=== PATIENT | male | born 1990 ===

== ENCOUNTER 2016-12-04 19:40 | Emergency (ER) | payer SELFPAY ==
--- NOTE | 2016-12-04 20:23 | DIAGNOSTIC IMAGING REPORT ---
PROCEDURE: XR CHEST 2 VIEW INDICATION: FEVER TECHNIQUE: PA and lateral views. The patient shielded. COMPARISON: None. FINDINGS: Lungs are clear. Heart and mediastinum are normal. Thorax is normal. IMPRESSION: 1. Negative chest.
--- NOTE | 2016-12-04 21:17 | ED NURSING NOTES ---
Clinical Report - Nurses [facility] [address] [place] [address] 12/04/2016 19:43 Patient: JANELL REEVES TRIAGE Triage time 19:53 Dec 04 2016. Acuity: LEVEL 4. Chief Complaint: FEVER, COUGH, SORE THROAT and BODY ACHES. 19:58 12/04/16. SEPSIS SCREEN: Sepsis Screen. Negative (no infection suspected/documented). DEMIAN COMA SCORE: [place] Coma Scale: 15- eyes open spontaneously (4); best verbal response- oriented x 4 (5); best motor response- obeys commands (6). --19:58 Krystle Cortes R.N. 19:52 12/04/16. BP: 149/80 (regular adult cuff) taken on the left arm. HR: 113. RR: 18. O2 saturation: 98% on room air. Temp: 98.9 F (oral). Pain level now: 910. Additional comments: chest pain "on fire". --19:58 Krystle Cortes R.N. Weight: 85.2 kg stated. Height/Length: 67 inches Per Patient. BMI: 29.4. --19:56 Krystle Cortes R.N. Medications None. --19:55 Krystle Cortes R.N. Allergies No Known Drug Allergy. --19:56 Krystle Cortes R.N. History Arrived by private vehicle. Historian: patient. Accompanied by (girlfriend). Primary physician (no PCP). ( Went to [facility] last Monday for cough, given ABO Amoxicillin for ear infections). He has had moderate chest congestion, a headache and mild diarrhea. He has had mild vomiting (today). The vomiting has occurred twice. No known contact with a sick individual. No recent travel. 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 SOCIAL HX: Heavy tobacco smoker (cigarette)- less than 1 pack per day. No alcohol use or drug use. No recent travel. No infectious disease exposure. No known contact with a sick individual. ABUSE ASSESSMENT: No report of abuse. --19:58 Krystle Cortes R.N. PROBLEMS: no known problems. ADDITIONAL SURGERIES: no known surgeries. Interventions ID band on patient. To treatment room. --19:58 Krystle Cortes R.N. PHYSICAL ASSESSMENT 20:12/04/16. Ambulatory to room. GENERAL / NEURO / PSYCH: Alert. Oriented X 4. HEENT: Pupils equal, round and reactive to light. Mucous membranes are pink. RESPIRATORY: Mild respiratory distress. Cough productive of moderate amounts of sputum. Chest wall tenderness (hurts to cough, tender when touched). CVS: Capillary refill less than 2 seconds. Pulses within normal limits. GI / : Abdomen soft and nontender and normal bowel sounds. SKIN: Skin intact. Skin is warm. Normal skin turgor. --20:01 Kryslte Cortes R.N. NURSING PROGRESS NOTES 20:12/04/16. The plan of care for this patient has been created. Head of bed elevated. Reassurance given. Two patient identifiers checked. Call light placed in reach. Side rails up x 1. Bed placed in lowest position. Brakes of bed on. Patient ready for evaluation- chart flagged and PA notified. --20:01 Krystle Cortes R.N. ( Xray finished with patient). --20:20 Krystle Cortes R.N. ( Patient given ice water). --20:20 Krystle Cortes R.N. ( Patient relaxing, girlfriend at patients bedside for support). --20:29 Krystle Cortes R.N. 20:39 12/04/2016 Duoneb (Ipratropium-Albuterol) Neb TX Nebulizer 1 unit dose given. Given by the respiratory therapist. Allergies verified and confirmed 5 rights. --20:39 Tor Pink 20:41 12/04/2016 Hydrocodone-APAP (Hydrocodone-Acetaminophen) PO 5/325 mg Tablets 1 tab given. Allergies verified, confirmed 5 rights and sedative warning given to the patient. --20:41 Krystle Cortes R.N. 20:41 12/04/2016 Azithromycin PO Tablets 500 mg given. Allergies verified and confirmed 5 rights. --20:41 Krystle Cortes R.N. 20:41 12/04/16. ( RT in with patient). --20:41 Krystle Cortes R.N. ( RT finished with breathing treatment). --20:52 Krystle Cortes R.N. 21:07 12/04/16. --21:07 Krystle Cortes R.N. 21:12/04/16. BP: 139/74 (regular adult cuff) taken on the left arm. HR: 103. RR: 18. O2 saturation: 98% on room air. Temp: 98.4 F (oral). Pain level now: 03/02. --21:07 Krystle Cortes R.N. DISPOSITION / DISCHARGE 21:40 12/04/16. Departure time: :Dec 04 2016. Condition at departure: unchanged. No learning barriers present. Discharge instructions provided and reviewed with the patient. Reviewed medication(s) side effects, precautions, dosing and course information. Prescription(s) given to the patient. Reviewed need to stop smoking- provided smoking cessation materials. Activity restrictions reviewed (no work for 2 days). Work note given. Retanned Leather Roller verbalized understanding. Written instructions provided in German. The patient was discharged by the physician school office assistant. He was discharged home and accompanied by curve cleaner. He left the Emergency Department ambulatory and via private vehicle. Retanned Leather Roller driving. --21:40 Krystle Cortes R.N. 21:39 12/04/16. BP: 128/71 (regular adult cuff) taken on the left arm. HR: 97. RR: 18. O2 saturation: 94% on room air. Temp: 98.3 F (oral). Pain level now: 03/02. --21:40 Krystle Cortes R.N. Locked/Released at 12/04/2016 21:41 by Krystle Cortes R.N.
--- NOTE | 2016-12-04 21:17 | ED CLINICAL REPORT ---
Clinical Report - Physicians/Mid Levels [facility] [address] [place] [address] 12/04/2016 19:43 Patient: JANELL REEVES Time Seen: 19:58 Dec 04 2016. Arrived- By private vehicle. Historian- patient. HISTORY OF PRESENT ILLNESS Chief Complaint: COUGH. This started 7 days and is still present. The illness is described as mild. The patient has had a cough. No chest discomfort or pain, fever or nasal congestion or discharge. No sinus pressure or ear pain. (he reports cough over the last 2 weeks was recently seen at urgent care clinic on Monday, was diagnosed with otitis media, currently taking amoxicillin. Patient has an everyday smoker. No sick contacts, has had nausea, as well as fevers. Denies history of PE or DVT. Denies hemoptysis. Patient denies vomiting.). Additional history - The patient has had contact with a sick individual. No recent travel. Similar symptoms previously: REVIEW OF SYSTEMS No headache, eye discomfort, nausea, diarrhea or pedal edema. No calf pain or difficulty with urination. All systems otherwise negative, except as recorded above. SOCIAL HISTORY Current every day heavy tobacco smoker. No alcohol use or drug use. PHYSICAL EXAM Appearance: Alert. Does not appear to be anxious. ENT: Ears normal. Pharynx normal. No peritonsillar mass. Neck: Normal inspection. No lymphadenopathy. CVS: Normal heart rate and rhythm. Heart sounds normal. Respiratory: No respiratory distress. Wheezing present. Rhonchi present. No retractions or decreased breath sounds. Abdomen: Soft. Skin: Skin warm. Normal skin color. Neuro: Oriented X 3. LABS, X-RAYS, AND EKG Chest X-ray: (IMPRESSION: 1. Negative chest. Electronically Final signed by:Aldair Layne MD 12/04/2016 8:19:02 PM). PROGRESS AND PROCEDURES Course of Care: patient given breathing treatment in the emergency department, with cough which is productive in nature. Chest x-ray large unremarkable, patient with history of fevers, productive nature cough for the last 2 weeks. We'll treat for bronchitis, possible bacterial cause. Patient given albuterol treatment. Patient with no reproducible pain. He does smoke, risk factor, otherwise symptoms ongoing for 2 weeks, less likely PE, or cardiac etiology. 12/04/2016 21:39 BP: 128/71. HR: 97. RR: 18. O2 saturation: 94%. Temp: 98.3 F. Pain level now: 8/10. Patient is stable. Symptoms better. Patient/family counseled. Disposition: Discharged. Condition: good. CLINICAL IMPRESSION Acute bacterial bronchitis. INSTRUCTIONS Do not work for two days. Drink plenty of fluids. Warnings: Further evaluation is necessary. Prescription Medications: Ventolin HFA oral inhaler: inhale 1 puff every 6 hours for 1 week, as needed for wheezing. Dispense one (1) unit Substitution is not permissible. Robitussin A-C cough syrup take five (5) mL orally every 6 hours as needed for cough for 5 days. Dispense sixty (60) mL. Substitution is permissible. Zithromax 250 mg tablets: take 1 orally every day. Total course 4 days. No refills. Substitution is permissible. (first dose 12/05/16) Follow-up: Follow up with your doctor in three days. (Electronically signed by Soraya Ibrahim P.A.-C 12/04/2016 22:18)
--- NOTE | 2016-12-04 21:17 | ED NURSING NOTES ---
Clinical Report - Nurses [facility] [address] [place] [address] 12/04/2016 19:43 Patient: JANELL REEVES TRIAGE Triage time 19:53 Dec 04 2016. Acuity: LEVEL 4. Chief Complaint: FEVER, COUGH, SORE THROAT and BODY ACHES. 19:58 12/04/16. SEPSIS SCREEN: Sepsis Screen. Negative (no infection suspected/documented). DEMIAN COMA SCORE: [place] Coma Scale: 15- eyes open spontaneously (4); best verbal response- oriented x 4 (5); best motor response- obeys commands (6). --19:58 Krystle Cortes R.N. 19:52 12/04/16. BP: 149/80 (regular adult cuff) taken on the left arm. HR: 113. RR: 18. O2 saturation: 98% on room air. Temp: 98.9 F (oral). Pain level now: 910. Additional comments: chest pain "on fire". --19:58 Krystle Cortes R.N. Weight: 85.2 kg stated. Height/Length: 67 inches Per Patient. BMI: 29.4. --19:56 Krystle Cortes R.N. Medications None. --19:55 Krystle Cortes R.N. Allergies No Known Drug Allergy. --19:56 Krystle Cortes R.N. History Arrived by private vehicle. Historian: patient. Accompanied by (girlfriend). Primary physician (no PCP). ( Went to [facility] last Monday for cough, given ABO Amoxicillin for ear infections). He has had moderate chest congestion, a headache and mild diarrhea. He has had mild vomiting (today). The vomiting has occurred twice. No known contact with a sick individual. No recent travel. 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 SOCIAL HX: Heavy tobacco smoker (cigarette)- less than 1 pack per day. No alcohol use or drug use. No recent travel. No infectious disease exposure. No known contact with a sick individual. ABUSE ASSESSMENT: No report of abuse. --19:58 Krystle Cortes R.N. PROBLEMS: no known problems. ADDITIONAL SURGERIES: no known surgeries. Interventions ID band on patient. To treatment room. --19:58 Krystle Cortes R.N. PHYSICAL ASSESSMENT 20:12/04/16. Ambulatory to room. GENERAL / NEURO / PSYCH: Alert. Oriented X 4. HEENT: Pupils equal, round and reactive to light. Mucous membranes are pink. RESPIRATORY: Mild respiratory distress. Cough productive of moderate amounts of sputum. Chest wall tenderness (hurts to cough, tender when touched). CVS: Capillary refill less than 2 seconds. Pulses within normal limits. GI / : Abdomen soft and nontender and normal bowel sounds. SKIN: Skin intact. Skin is warm. Normal skin turgor. --20:01 Krystle Cortes R.N. NURSING PROGRESS NOTES 20:12/04/16. The plan of care for this patient has been created. Head of bed elevated. Reassurance given. Two patient identifiers checked. Call light placed in reach. Side rails up x 1. Bed placed in lowest position. Brakes of bed on. Patient ready for evaluation- chart flagged and PA notified. --20:01 Krystle Cortes R.N. ( Xray finished with patient). --20:20 Krystle Cortes R.N. ( Patient given ice water). --20:20 Krystle Cortes R.N. ( Patient relaxing, girlfriend at patients bedside for support). --20:29 Krystle Cortes R.N. 20:39 12/04/2016 Duoneb (Ipratropium-Albuterol) Neb TX Nebulizer 1 unit dose given. Given by the respiratory therapist. Allergies verified and confirmed 5 rights. --20:39 Tor Pink 20:41 12/04/2016 Hydrocodone-APAP (Hydrocodone-Acetaminophen) PO 5/325 mg Tablets 1 tab given. Allergies verified, confirmed 5 rights and sedative warning given to the patient. --20:41 Krystle Cortes R.N. 20:41 12/04/2016 Azithromycin PO Tablets 500 mg given. Allergies verified and confirmed 5 rights. --20:41 Krystle Cortes R.N. 20:41 12/04/16. ( RT in with patient). --20:41 Krystle Cortes R.N. ( RT finished with breathing treatment). --20:52 Krystle Cortes R.N. 21:07 12/04/16. --21:07 Krystle Cortes R.N. 21:12/04/16. BP: 139/74 (regular adult cuff) taken on the left arm. HR: 103. RR: 18. O2 saturation: 98% on room air. Temp: 98.4 F (oral). Pain level now: 03/02. --21:07 Krystle Cortes R.N. DISPOSITION / DISCHARGE 21:40 12/04/16. Departure time: :Dec 04 2016. Condition at departure: unchanged. No learning barriers present. Discharge instructions provided and reviewed with the patient. Reviewed medication(s) side effects, precautions, dosing and course information. Prescription(s) given to the patient. Reviewed need to stop smoking- provided smoking cessation materials. Activity restrictions reviewed (no work for 2 days). Work note given. Checkering Machine Operator verbalized understanding. Written instructions provided in Greenlandic. The patient was discharged by the physician review assistant. He was discharged home and accompanied by head rigger. He left the Emergency Department ambulatory and via private vehicle. Checkering Machine Operator driving. --21:40 Krystle Cortes R.N. 21:39 12/04/16. BP: 128/71 (regular adult cuff) taken on the left arm. HR: 97. RR: 18. O2 saturation: 94% on room air. Temp: 98.3 F (oral). Pain level now: 03/02. --21:40 Krystle Cortes R.N. Locked/Released at 12/04/2016 21:41 by Krystle Cortes R.N.
--- NOTE | 2016-12-04 21:17 | ED ORDER SUMMARY ---
..... Patient: JANELL REEVES OrderSheet [facility] VisitID: [id number] [address] [place] [address] 26y, M Registration Date/Time: 12/04/2016 ORDER SHEET Weight: 85.2 kg (stated) Allergies: No Known Drug Allergy GENERAL ORDERS: Chest 2V Urgent (20:04 12/04/2016 EKoroleva P.A.-C) (Ack 20:06 [employer] ER Construction Project Coordinator) (20:17 RFay) Vitals (20:50 12/04/2016 EKoroleva P.A.-C) (21:05 JSanders R.N.) MEDICATION ORDERS: DuoNeb Neb Tx 1 unit dose (NOW) (20:33 12/04/2016 EKoroleva P.A.-C) (Ack 20:38 [employer] ER Construction Project Coordinator) (20:39 MRobideau) Hydrocodone-APAP PO 5/325 mg (NOW, HIGH ALERT MEDICATION) (20:33 12/04/2016 EKoroleva P.A.-C) (Ack 20:38 JSanders R.N.) (20:41 JSanders R.N.) Azithromycin PO 500 mg (NOW) (20:33 12/04/2016 EKoroleva P.A.-C) (Ack 20:38 JSanders R.N.) (20:41 JSanders R.N.) IV FLUIDS: ORDER SHEET NOTES: [Electronically signed by Krystle Cortes R.N. (21:41 12/04/2016)] [Electronically signed by Soraya Ibrahim PJamilaAJamila-C (22:18 12/04/2016)] [Electronically locked/signed by Krystle Cortes R.N. (21:41 12/04/2016)]
--- NOTE | 2016-12-04 21:17 | ED ORDER SUMMARY ---
..... Patient: JANELL REEVES OrderSheet [facility] VisitID: [id number] [address] [place] [address] 26y, M Registration Date/Time: 12/04/2016 ORDER SHEET Weight: 85.2 kg (stated) Allergies: No Known Drug Allergy GENERAL ORDERS: Chest 2V Urgent (20:04 12/04/2016 EKoroleva P.A.-C) (Ack 20:06 General Specific ER Home Demonstration Agent) (20:17 RFay) Vitals (20:50 12/04/2016 EKoroleva P.A.-C) (21:05 JSanders R.N.) MEDICATION ORDERS: DuoNeb Neb Tx 1 unit dose (NOW) (20:33 12/04/2016 EKoroleva P.A.-C) (Ack 20:38 General Specific ER Home Demonstration Agent) (20:39 MRobideau) Hydrocodone-APAP PO 5/325 mg (NOW, HIGH ALERT MEDICATION) (20:33 12/04/2016 EKoroleva P.A.-C) (Ack 20:38 JSanders R.N.) (20:41 JSanders R.N.) Azithromycin PO 500 mg (NOW) (20:33 12/04/2016 EKoroleva P.A.-C) (Ack 20:38 JSanders R.N.) (20:41 JSanders R.N.) IV FLUIDS: ORDER SHEET NOTES: [Electronically signed by Krystle Cortes R.N. (21:41 12/04/2016)] [Electronically signed by Soraya Ibrahim PJamilaAJamila-C (22:18 12/04/2016)] [Electronically locked/signed by Krystle Cortes R.N. (21:41 12/04/2016)]
--- NOTE | 2016-12-04 22:18 | ED MED RECONCILIATION SUMMARY ---
Patient: JANELL REEVES Medication Reconciliation Report [facility] VisitID: [id number] [address] [place] [address] 26y, M Registration Date/Time: 12/04/2016 Weight: 85.2 kg Height/Length: 67 in. BMI: 29.4 ALLERGIES: No Known Drug Allergy The patient's Home Medications are listed below: NONE. The source(s) of the original Home Medication information: Not obtained. The following Medications were given to the patient in the Emergency Department: Duoneb [Neb Tx] Neb TX 1 unit dose, administered: 12/04/2016 8:39:00 PM Hydrocodone-APAP [PO] PO 1 tab, administered: 12/04/2016 8:41:00 PM Azithromycin [PO] PO 500 mg, administered: 12/04/2016 8:41:00 PM The following Medications were prescribed to the patient: Ventolin HFA oral inhaler: inhale 1 puff every 6 hours for 1 week, as needed for wheezing. Dispense one (1) unit Substitution is not permissible. -- Soraya Ibrahim, P.A.-Megan Robitussin A-C cough syrup take five (5) mL orally every 6 hours as needed for cough for 5 days. Dispense sixty (60) mL. Substitution is permissible. -- Soraya Ibrahim P.A.-Megan Zithromax 250 mg tablets: take 1 orally every day. Total course 4 days. No refills. Substitution is permissible.(first dose 12/05/16) -- Soraya Ibrahim P.AJamial-Megan
--- NOTE | 2016-12-04 22:18 | ED MED RECONCILIATION SUMMARY ---
Patient: JANELL REEVES Medication Reconciliation Report [facility] VisitID: [id number] [address] [place] [address] 26y, M Registration Date/Time: 12/04/2016 Weight: 85.2 kg Height/Length: 67 in. BMI: 29.4 ALLERGIES: No Known Drug Allergy The patient's Home Medications are listed below: NONE. The source(s) of the original Home Medication information: Not obtained. The following Medications were given to the patient in the Emergency Department: Duoneb [Neb Tx] Neb TX 1 unit dose, administered: 12/04/2016 8:39:00 PM Hydrocodone-APAP [PO] PO 1 tab, administered: 12/04/2016 8:41:00 PM Azithromycin [PO] PO 500 mg, administered: 12/04/2016 8:41:00 PM The following Medications were prescribed to the patient: Ventolin HFA oral inhaler: inhale 1 puff every 6 hours for 1 week, as needed for wheezing. Dispense one (1) unit Substitution is not permissible. -- Soraya Ibrahim, P.A.-Megan Robitussin A-C cough syrup take five (5) mL orally every 6 hours as needed for cough for 5 days. Dispense sixty (60) mL. Substitution is permissible. -- Soraya Ibrahim P.A.-Megan Zithromax 250 mg tablets: take 1 orally every day. Total course 4 days. No refills. Substitution is permissible.(first dose 12/05/16) -- Soraya Ibrahim P.AJamila-Megan
--- NOTE | 2016-12-04 22:18 | ED DISCHARGE INSTRUCTIONS ---
Patient: JANELL REEVES General Instructions [facility] VisitID: [id number] [place] [address] 26y, M Registration Date/Time: 12/04/2016 Acute bacterial bronchitis. INSTRUCTIONS Do not work for two days. Drink plenty of fluids. Warnings: Further evaluation is necessary. Prescription Medications: Ventolin HFA oral inhaler: inhale 1 puff every 6 hours for 1 week, as needed for wheezing. Dispense one (1) unit Substitution is not permissible. Robitussin A-C cough syrup take five (5) mL orally every 6 hours as needed for cough for 5 days. Dispense sixty (60) mL. Substitution is permissible. Zithromax 250 mg tablets: take 1 orally every day. Total course 4 days. No refills. Substitution is permissible. (first dose 12/05/16) Follow-up: Follow up with your doctor in three days. ADDITIONAL INFORMATION Bronchitis (Adult: Abx Tx) BRONCHITIS is an infection of the air passages (bronchial tubes). It often occurs during the common cold. Symptoms include cough with mucus (phlegm) and low-grade fever. Bronchitis usually lasts 7-14 days. Mild cases can be treated with simple home remedies. More severe infection is treated with an antibiotic. Home Care: If symptoms are severe, rest at home for the first 2-3 days. When you resume activity, don't let yourself get too tired. Do not smoke. Avoid being exposed to the smoke of others. You may use acetaminophen (Tylenol) or ibuprofen (Motrin, Advil) to control fever or pain, unless another medicine was prescribed for this. [NOTE: If you have chronic liver or kidney disease or ever had a stomach ulcer or GI bleeding, talk with your doctor before using these medicines.] Your appetite may be poor, so a light diet is fine. Avoid dehydration by drinking 6-8 glasses of fluids per day (water, soft, drinks, juices, tea, soup, etc.). Extra fluids will help loosen secretions in the lungs. Szgn-enw-dpmdlal cough medicines that containdextromethorphan(such as Robitussin DM) and decongestants (Actifed or Sudafed) may help relieve cough and congestion. [NOTE: Do not use decongestants if you have high blood pressure.] Finish all antibiotic medicine, even if you are feeling better after only a few days. Follow Up with your doctor or as directed if you dont start to feel better after three days. [NOTE: If you are age 65 or older, or if you have chronic asthma or COPD, we recommend a PNEUMOCOCCAL VACCINATION every five years and a yearly INFLUENZAVACCINATION (FLU-SHOT) every . Ask your doctor about this. If you had an X-ray, a radiologist will review it. You will be notified of any new findings that may affect your care.] Get Prompt Medical Attention if any of the following occur: Fever over 100.4F (38.0C) for more than three days Trouble breathing, wheezing or pain with breathing Coughing up blood or increased amounts of colored sputum Weakness, drowsiness, headache, facial pain, ear pain or a stiff neck Albuterol Sulfate Pressurized inhalation, suspension What is this medicine? ALBUTEROL (al BYOO ter ole) is a bronchodilator. It helps open up the airways in your lungs to make it easier to breathe. This medicine is used to treat and to prevent bronchospasm. How should I use this medicine? This medicine is for inhalation through the mouth. Follow the directions on your prescription label. Take your medicine at regular intervals. Do not use more often than directed. Make sure that you are using your inhaler correctly. Ask you doctor or health care provider if you have any questions. Talk to your proposal director regarding the use of this medicine in children. Special care may be needed. What side effects may I notice from receiving this medicine? Side effects that you should report to your doctor or health reproductive healthcare assistant as soon as possible: allergic reactions like skin rash, itching or hives, swelling of the face, lips, or tongue breathing problems chest pain feeling faint or lightheaded, falls high blood pressure irregular heartbeat fever muscle cramps or weakness pain, tingling, numbness in the hands or feet vomiting Side effects that usually do not require medical attention (report to your doctor or health reproductive healthcare assistant if they continue or are bothersome): cough difficulty sleeping headache nervousness or trembling stomach upset stuffy or runny nose throat irritation unusual taste What may interact with this medicine? anti-infectives like chloroquine and pentamidine caffeine cisapride diuretics medicines for colds medicines for depression or for emotional or psychotic conditions medicines for weight loss including some herbal products methadone some antibiotics like clarithromycin, erythromycin, levofloxacin, and linezolid some heart medicines steroid hormones like dexamethasone, cortisone, hydrocortisone theophylline thyroid hormones What if I miss a dose? If you miss a dose, use it as soon as you can. If it is almost time for your next dose, use only that dose. Do not use double or extra doses. Where should I keep my medicine? Keep out of the reach of children. Store at room temperature between 15 and 30 degrees C (59 and 86 degrees F). The contents are under pressure and may burst when exposed to heat or flame. Do not freeze. This medicine does not work as well if it is too cold. Throw away any unused medicine after the expiration date. Inhalers need to be thrown away after the labeled number of puffs have been used or by the expiration date; whichever comes first. Ventolin HFA should be thrown away 12 months after removing from foil pouch. Check the instructions that come with your medicine. What should I tell my health care provider before I take this medicine? They need to know if you have any of the following conditions: diabetes heart disease or irregular heartbeat high blood pressure pheochromocytoma seizures thyroid disease an unusual or allergic reaction to albuterol, levalbuterol, sulfites, other medicines, foods, dyes, or preservatives or trying to get breast-feeding What should I watch for while using this medicine? Tell your doctor or health reproductive healthcare assistant if your symptoms do not improve. Do not use extra albuterol. If your asthma or bronchitis gets worse while you are using this medicine, call your doctor right away. If your mouth gets dry try chewing sugarless gum or sucking hard candy. Drink water as directed. You have been given the following additional information: Bronchitis, Antiobiotic Treatment (Adult) Albuterol Sulfate Pressurized inhalation, suspension Do not work for two days. (Electronically signed by Soraya Ibrahim P.A.-C 12/04/2016 22:18)
--- NOTE | 2016-12-04 22:18 | ED MAR SUMMARY ---
..... Medication Administration Record [facility] [address] [place] [address] Patient: JANELL REEVES Visit ID: [id number] 26y, M Weight: 85.2 kg Height/Length: 67 in BMI: 29.4 ALLERGIES: No Known Drug Allergy Given 20:39 12/04/2016 Tor Pink, Medication Administered: DUONEB [NEB TX] (IPRATROPIUM-ALBUTEROL), Dose: 1 unit dose Nebulizer Neb TX. Medication Ordered: DuoNeb Neb Tx 1 unit dose (NOW). Given 20:41 12/04/2016 Krystle Cortes RMadelyn Medication Administered: HYDROCODONE-APAP [PO] (HYDROCODONE-ACETAMINOPHEN), Dose: 1 tab 5/325 mg Tablets PO. Medication Ordered: Hydrocodone-APAP PO 5/325 mg (NOW, HIGH ALERT MEDICATION). Given 20:12/04/2016 Krystle Cortes RJamilaN. Medication Administered: AZITHROMYCIN [PO], Dose: 500 mg Tablets PO. Medication Ordered: Azithromycin PO 500 mg (NOW).
--- NOTE | 2016-12-04 22:18 | ED MAR SUMMARY ---
..... Medication Administration Record [facility] [address] [place] [address] Patient: JANELL REEVES Visit ID: [id number] 26y, M Weight: 85.2 kg Height/Length: 67 in BMI: 29.4 ALLERGIES: No Known Drug Allergy Given 20:39 12/04/2016 Tor Pink, Medication Administered: DUONEB [NEB TX] (IPRATROPIUM-ALBUTEROL), Dose: 1 unit dose Nebulizer Neb TX. Medication Ordered: DuoNeb Neb Tx 1 unit dose (NOW). Given 20:41 12/04/2016 Krystle Cortes RMadelyn Medication Administered: HYDROCODONE-APAP [PO] (HYDROCODONE-ACETAMINOPHEN), Dose: 1 tab 5/325 mg Tablets PO. Medication Ordered: Hydrocodone-APAP PO 5/325 mg (NOW, HIGH ALERT MEDICATION). Given 20:12/04/2016 Krystle Cortes RJamilaN. Medication Administered: AZITHROMYCIN [PO], Dose: 500 mg Tablets PO. Medication Ordered: Azithromycin PO 500 mg (NOW).
--- NOTE | 2016-12-04 22:18 | ED DISCHARGE INSTRUCTIONS ---
Patient: JANELL REEVES General Instructions [facility] VisitID: [id number] [place] [address] 26y, M Registration Date/Time: 12/04/2016 Acute bacterial bronchitis. INSTRUCTIONS Do not work for two days. Drink plenty of fluids. Warnings: Further evaluation is necessary. Prescription Medications: Ventolin HFA oral inhaler: inhale 1 puff every 6 hours for 1 week, as needed for wheezing. Dispense one (1) unit Substitution is not permissible. Robitussin A-C cough syrup take five (5) mL orally every 6 hours as needed for cough for 5 days. Dispense sixty (60) mL. Substitution is permissible. Zithromax 250 mg tablets: take 1 orally every day. Total course 4 days. No refills. Substitution is permissible. (first dose 12/05/16) Follow-up: Follow up with your doctor in three days. ADDITIONAL INFORMATION Bronchitis (Adult: Abx Tx) BRONCHITIS is an infection of the air passages (bronchial tubes). It often occurs during the common cold. Symptoms include cough with mucus (phlegm) and low-grade fever. Bronchitis usually lasts 7-14 days. Mild cases can be treated with simple home remedies. More severe infection is treated with an antibiotic. Home Care: If symptoms are severe, rest at home for the first 2-3 days. When you resume activity, don't let yourself get too tired. Do not smoke. Avoid being exposed to the smoke of others. You may use acetaminophen (Tylenol) or ibuprofen (Motrin, Advil) to control fever or pain, unless another medicine was prescribed for this. [NOTE: If you have chronic liver or kidney disease or ever had a stomach ulcer or GI bleeding, talk with your doctor before using these medicines.] Your appetite may be poor, so a light diet is fine. Avoid dehydration by drinking 6-8 glasses of fluids per day (water, soft, drinks, juices, tea, soup, etc.). Extra fluids will help loosen secretions in the lungs. Nigx-dat-qwtfkhm cough medicines that containdextromethorphan(such as Robitussin DM) and decongestants (Actifed or Sudafed) may help relieve cough and congestion. [NOTE: Do not use decongestants if you have high blood pressure.] Finish all antibiotic medicine, even if you are feeling better after only a few days. Follow Up with your doctor or as directed if you dont start to feel better after three days. [NOTE: If you are age 65 or older, or if you have chronic asthma or COPD, we recommend a PNEUMOCOCCAL VACCINATION every five years and a yearly INFLUENZAVACCINATION (FLU-SHOT) every . Ask your doctor about this. If you had an X-ray, a radiologist will review it. You will be notified of any new findings that may affect your care.] Get Prompt Medical Attention if any of the following occur: Fever over 100.4F (38.0C) for more than three days Trouble breathing, wheezing or pain with breathing Coughing up blood or increased amounts of colored sputum Weakness, drowsiness, headache, facial pain, ear pain or a stiff neck Albuterol Sulfate Pressurized inhalation, suspension What is this medicine? ALBUTEROL (al BYOO ter ole) is a bronchodilator. It helps open up the airways in your lungs to make it easier to breathe. This medicine is used to treat and to prevent bronchospasm. How should I use this medicine? This medicine is for inhalation through the mouth. Follow the directions on your prescription label. Take your medicine at regular intervals. Do not use more often than directed. Make sure that you are using your inhaler correctly. Ask you doctor or health care provider if you have any questions. Talk to your outboard motors experimental mechanic regarding the use of this medicine in children. Special care may be needed. What side effects may I notice from receiving this medicine? Side effects that you should report to your doctor or health patient care associate as soon as possible: allergic reactions like skin rash, itching or hives, swelling of the face, lips, or tongue breathing problems chest pain feeling faint or lightheaded, falls high blood pressure irregular heartbeat fever muscle cramps or weakness pain, tingling, numbness in the hands or feet vomiting Side effects that usually do not require medical attention (report to your doctor or health patient care associate if they continue or are bothersome): cough difficulty sleeping headache nervousness or trembling stomach upset stuffy or runny nose throat irritation unusual taste What may interact with this medicine? anti-infectives like chloroquine and pentamidine caffeine cisapride diuretics medicines for colds medicines for depression or for emotional or psychotic conditions medicines for weight loss including some herbal products methadone some antibiotics like clarithromycin, erythromycin, levofloxacin, and linezolid some heart medicines steroid hormones like dexamethasone, cortisone, hydrocortisone theophylline thyroid hormones What if I miss a dose? If you miss a dose, use it as soon as you can. If it is almost time for your next dose, use only that dose. Do not use double or extra doses. Where should I keep my medicine? Keep out of the reach of children. Store at room temperature between 15 and 30 degrees C (59 and 86 degrees F). The contents are under pressure and may burst when exposed to heat or flame. Do not freeze. This medicine does not work as well if it is too cold. Throw away any unused medicine after the expiration date. Inhalers need to be thrown away after the labeled number of puffs have been used or by the expiration date; whichever comes first. Ventolin HFA should be thrown away 12 months after removing from foil pouch. Check the instructions that come with your medicine. What should I tell my health care provider before I take this medicine? They need to know if you have any of the following conditions: diabetes heart disease or irregular heartbeat high blood pressure pheochromocytoma seizures thyroid disease an unusual or allergic reaction to albuterol, levalbuterol, sulfites, other medicines, foods, dyes, or preservatives or trying to get breast-feeding What should I watch for while using this medicine? Tell your doctor or health patient care associate if your symptoms do not improve. Do not use extra albuterol. If your asthma or bronchitis gets worse while you are using this medicine, call your doctor right away. If your mouth gets dry try chewing sugarless gum or sucking hard candy. Drink water as directed. You have been given the following additional information: Bronchitis, Antiobiotic Treatment (Adult) Albuterol Sulfate Pressurized inhalation, suspension Do not work for two days. (Electronically signed by Soraya Ibrahim P.A.-C 12/04/2016 22:18)
== END 2016-12-04 21:40 | disposition home or self-care (01) ==
LOC: ED SRH 19:40
DX: J20.8 Acute bronchitis due to other specified organisms (principal)